=== PATIENT | female | born 1975 | race Caucasian/White ===

== ENCOUNTER 2016-12-18 11:20 | Emergency (ER) | payer OTHER ==
[~2016-12-18] VITALS: Ht 162.6 cm; Wt 63.6 kg
[~2016-12-18 11:20] MED LIST: "\\\"ANTIBIOTIC\\\"" PO; NOHOMEMEDS; PERCOCET PO
[2016-12-18] MEDS ORDERED: LEXAPRO10 MG PO (14:13)
[2016-12-18] MEDS ORDERED: METHADONE HCL40 MG PO (14:14)
[2016-12-18] MEDS ORDERED: MOTRIN600 MG PO (15:07)
[2016-12-18 15:34] VITALS: BP 119/84
[2016-12-22] MEDS ORDERED: NORCO 5/3251 TABLET PO (10:27)
== END 2016-12-18 15:34 | disposition home or self-care (01) ==
LOC: EME 11:20
PROC: 0QSKXZZ Reposition Left Fibula, External Approach (ICD-10-PCS; principal; 2016-12-18)
DX: S82.852A Displaced trimalleolar fracture of left lower leg, initial encounter for closed fracture (principal); S93.05XA Dislocation of left ankle joint, initial encounter; W19.XXXA Unspecified fall, initial encounter; F17.200 Nicotine dependence, unspecified, uncomplicated
CPT/HCPCS: 73610; 99281; 99285; J7030

== ENCOUNTER 2016-12-26 09:16 | Day surgery (SDC) | payer OTHER ==
[~2016-12-26] VITALS: Ht 162.6 cm; Wt 61.2 kg
[~2016-12-26 09:16] MED LIST changes: +LEXAPRO10 MG PO; +METHADONE HCL40 MG PO; +MOTRIN600 MG PO; +NORCO 5/3251 TABLET PO
[2016-12-26 10:03] LABS: HEMATOCRIT 37.4 % (36.0-46.0); MCH 33.9 PG (29.0-34.0); MCHC 34.8 G/DL (30.0-36.0); MCV 97.7 FL (83-99); MEAN PLAT.VOLUME 9.6 uM^3 (9.5-12.4); PLATELET COUNT 288 K/uL (156-360); RBC DIS.WIDTH-CV 12.9 % (11.8-14.6); RBC DIS.WIDTH-SD 45.5 % (39-53); RED BLOOD COUNT 3.83 M/uL (3.80-5.20); WHITE BLOOD COUNT 4.9 K/uL (4.1-10.2)
[2016-12-26 10:30] VITALS: BP 115/75
[2016-12-26 14:21] VITALS: BP 142/77
[2016-12-26 15:20] VITALS: BP 126/73
[2016-12-26 16:26] LABS: INTERNAL CONTROL VALID? YES
== END 2016-12-26 15:40 | disposition home or self-care (01) ==
LOC: SDC 09:16
PROVIDERS: Orthopaedic Surgery
PROC: 0YJ Anatomical Regions, Lower Extremities, Inspection (ICD-10-PCS; principal; 2016-12-26)
DX: T84.89XA Other specified complication of internal orthopedic prosthetic devices, implants and grafts, initial encounter (principal); S82.872A Displaced pilon fracture of left tibia, initial encounter for closed fracture; W19.XXXA Unspecified fall, initial encounter; Y92.007 Garden or yard of unspecified non-institutional (private) residence as the place of occurrence of the external cause; F11.20 Opioid dependence, uncomplicated; F17.210 Nicotine dependence, cigarettes, uncomplicated
CPT/HCPCS: 84703; 85027; J0131; J0690; J1100; J2250; J2405; J3010; S0020